=== PATIENT | male | born 1975 | race Caucasian/White ===

== ENCOUNTER 2017-04-12 19:38 | Emergency (ER) | payer OTHER ==
[~2017-04-12] VITALS: Ht 182.8 cm; Wt 150.6 kg
[~2017-04-12 19:38] MED LIST: ANAPROX DS550 MG PO; DARVOCET N 1001 TAB PO
[2017-04-12] MEDS ORDERED: CLINDAMYCIN HC300 MG PO (21:34)
== END 2017-04-12 21:39 | disposition home or self-care (01) ==
LOC: ED 19:38
DX: K04.01 Reversible pulpitis (principal); K02.9 Dental caries, unspecified; F17.200 Nicotine dependence, unspecified, uncomplicated; J44.9 Chronic obstructive pulmonary disease, unspecified; Z88.6 Allergy status to analgesic agent; Z88.8 Allergy status to other drugs, medicaments and biological substances

== ENCOUNTER 2017-04-28 14:23 | Emergency (ER) | payer OTHER ==
[~2017-04-28] VITALS: Ht 182.8 cm; Wt 149.7 kg
[~2017-04-28 14:23] MED LIST changes: +CLINDAMYCIN HC300 MG PO
[2017-04-28] MEDS ORDERED: NAPROSYN500 MG PO (15:22)
[2017-04-28] MEDS ORDERED: Peridex 473 ML473 ML PO (15:22)
[2017-04-28] MEDS ORDERED: PENICILLIN VK500 MG PO (15:22)
== END 2017-04-28 17:16 | disposition home or self-care (01) ==
LOC: ED 14:23
DX: K02.9 Dental caries, unspecified (principal); R03.0 Elevated blood-pressure reading, without diagnosis of hypertension; Z88.8 Allergy status to other drugs, medicaments and biological substances; Z88.6 Allergy status to analgesic agent

== ENCOUNTER → 2017-05-20 | Day surgery (SDC) | payer OTHER ==
[2017-05-15 09:28] VITALS: BP 121/69
[~2017-05-20] VITALS: Ht 177.8 cm; Wt 152.0 kg
[~2017-05-20] MED LIST changes: +ALL DAY ALLERGY10 M2 PO; +LASIX20 MG PO; +LISINOPRIL20 MG PO; +MAGIC SWIZZLE T; +NAPROSYN500 MG PO; +NORCO 5-325 TA1 EACH PO; +OMEPRAZOLE40 MG PO; +PENICILLIN VK500 MG PO; +PENICILLIN-VK500 M1 PO; +Peridex 473 ML473 ML PO; +SINGULAIR10 M1 PO; +TOPROL XL25 MG PO
--- NOTE | ~2017-05-20 | O ---
[place], [place] OPERATIVE NOTE NAME: [id number] UNIT #: [id number] ROOM: DOCTOR: LANCE ROBLESARLEN BIRTHDATE: [birth year] DOS: 05/20/2017 PREOPERATIVE DIAGNOSES: Carries, anxiety, periodontal disease. POSTOPERATIVE DIAGNOSES: Carries, anxiety, periodontal disease. ANESTHESIA: General anesthesia, endotracheal intubation. FLUIDS: Minimal. ESTIMATED BLOOD LOSS: Minimal. COMPLICATIONS: None. CONDITION: To PACU, stable. DESCRIPTION OF PROCEDURE: The patient was brought to the OR and placed in supine position. IV and EKG lines were placed. Endotracheal intubation and general anesthesia was administered. The patient was prepped and draped for oral procedures. Risks and benefits were explained to the patient prior to surgery. Clinical exam and x-rays taken determined nonrestorable maxillary and mandibular dentition. PROCEDURES PERFORMED: Complete extraction of teeth #1, 2, 3, 4, 5, 6, 7, 8, 9, 10, 11, 12, 13, 14, 15, 16, 17, 18, 19, 20, 21, 22, 23, 24, 25, 26, 27, 28, 29 and 31. Full thickness flaps in all 4 quadrants with moderate bone removal. Cyst removed from the maxillary right buccal plate, sent for biopsy. Clinical diagnosis would be radicular cyst. Sutured with 4-0 Vicryl. Lavaged x 2. Throat pack removed. The patient left the OR in good condition and went to the PACU. ARLEN LUCAS DMD CM:OPRECORD:OPERATIVE NOTE [id number] ARLEN LUCAS DMD 05/26/17 1212 interface
[2017-05-20 08:00] VITALS: BP 130/68
[2017-05-20 10:36] VITALS: BP 127/65
[2017-05-20 10:51] VITALS: BP 122/72
[2017-05-20 11:06] VITALS: BP 113/64
[2017-05-20 11:21] VITALS: BP 109/64
[2017-05-20 11:36] VITALS: BP 118/68
== END | disposition home or self-care (01) ==
LOC: SDC 05-15 09:30
DX: K02.9 Dental caries, unspecified (principal); F41.9 Anxiety disorder, unspecified; K05.6 Periodontal disease, unspecified; Z79.899 Other long term (current) drug therapy; Z80.9 Family history of malignant neoplasm, unspecified; I25.2 Old myocardial infarction; J44.9 Chronic obstructive pulmonary disease, unspecified; I10 Essential (primary) hypertension; K21.9 Gastro-esophageal reflux disease without esophagitis; Z82.49 Family history of ischemic heart disease and other diseases of the circulatory system; F17.210 Nicotine dependence, cigarettes, uncomplicated

== ENCOUNTER 2018-02-09 14:25 | Emergency (ER) | payer OTHER ==
[~2018-02-09] VITALS: Ht 177.8 cm; Wt 154.2 kg
== END 2018-02-09 16:32 | disposition home or self-care (01) ==
LOC: ED 14:25
DX: S80.12XA Contusion of left lower leg, initial encounter (principal); Z88.8 Allergy status to other drugs, medicaments and biological substances; Z79.899 Other long term (current) drug therapy; W31.89XA Contact with other specified machinery, initial encounter; Y93.89 Activity, other specified; Y92.69 Other specified industrial and construction area as the place of occurrence of the external cause; Y99.8 Other external cause status

== ENCOUNTER 2018-12-17 16:27 | Emergency (ER) | payer OTHER ==
[~2018-12-17] VITALS: Ht 182.8 cm; Wt 150.6 kg
[2018-12-17 17:05] LABS: BASO # 0.1 10*3/uL (0.0-0.1); BASO % 0.6 % (0.0-1.0); EOS # 0.2 10*3/uL (0.0-0.4); EOS % 2.2 % (1.0-4.0); HEMATOCRIT 44.8 % (42.0-52.0); HEMOGLOBIN 14.5 g/dl (14.0-18.0); LYMPH # 2.2 10*3/uL (1.3-4.4); LYMPH % 21.9 % (27.0-41.0); MEAN CELL VOLUME 92.6 fl (80.0-94.0); MEAN CORPUSCULAR HGB CONC 32.4 g/dl (33.0-37.0); MEAN PLATELET VOLUME 11.3 fl (9.6-12.3); MONO # 0.6 10*3/uL (0.1-1.0); MONO % 5.7 % (3.0-9.0); NEUT # 6.8 10*3/uL (2.3-7.9); NEUT % 69.4 % (47.0-73.0); PLATELET COUNT AUTOMATED 195 10*3/uL (130-400); RED BLOOD COUNT 4.84 10*6/uL (4.50-5.90); RED CELL DISTRI WIDTH 13.7 % (0-14.5); WHITE BLOOD COUNT 9.9 10*3/uL (4.8-10.8)
[2018-12-17 17:09] LABS: BILIRUBIN NEGATIVE (NEGATIVE); BLOOD 1+ (NEGATIVE); CLARITY CLEAR (CLEAR); COLOR YELLOW (YELLOW); GLUCOSE NEGATIVE (NEGATIVE); KETONE NEGATIVE (NEGATIVE); LEUKO ESTERASE NEGATIVE (NEGATIVE); NITRITE NEGATIVE (NEGATIVE); UROBILINOGEN 0.2 E.U./dl (0.2-1.0)
[2018-12-17 17:20] LABS: BACTERIA TRACE; EPITHELIAL CELLS 0-2; WBC 0-2 wbc/hpf (0-5)
[2018-12-17 17:20] LABS: ALBUMIN 3.5 gm/dl (3.1-4.5); ALKALINE PHOSPHATASE 70 U/L (45-117); BUN 15 mg/dl (7-24); CHLORIDE 103 mmol/L (98-107); CREATININE 1.13 mg/dL (0.70-1.30); LIPASE 238 U/L (73-393); POTASSIUM 4.1 mmol/L (3.5-5.1); SGOT/AST 16 IU/L (3-35); SGPT/ALT 30 U/L (12-78); SODIUM 136 mmol/L (136-145); TOTAL PROTEIN 7.2 gm/dL (6.4-8.2)
== END 2018-12-17 18:51 | disposition home or self-care (01) ==
LOC: ED 16:27
PROVIDERS: Nurse Practitioner Family
DX: N23 Unspecified renal colic (principal); I25.2 Old myocardial infarction; J44.9 Chronic obstructive pulmonary disease, unspecified; I10 Essential (primary) hypertension; K21.9 Gastro-esophageal reflux disease without esophagitis; Z79.899 Other long term (current) drug therapy; Z88.8 Allergy status to other drugs, medicaments and biological substances